=== PATIENT | female | born 1990 ===

== ENCOUNTER 2021-03-22 11:42 | Inpatient (IN) | payer MEDICAID ==
[2021-03-22] MEDS ORDERED: Sodium Chloride 0.9% 2.5 ML Syringe FLUSH PRN (12:05)
[2021-03-22] MEDS ORDERED: Methylergonovine 0.2 MG/1 ML Amp IM PRN (12:05)
[2021-03-22] MEDS ORDERED: Nalbuphine 10 MG/1 ML Vial IVPUSH PRN (12:05)
[2021-03-22] MEDS ORDERED: Sodium Chloride 0.9% 10 ML Syringe FLUSH PRN (12:05)
[2021-03-22] MEDS ORDERED: Butorphanol 1 MG/ML SDV IVPUSH PRN (12:05)
[2021-03-22] MEDS ORDERED: Water For Irrigation,Sterile 1,000 ML Container IRR PRN (12:05)
[2021-03-22] MEDS ORDERED: Carboprost Tromethamine 250 MCG/1 ML Amp IM PRN (12:05)
[2021-03-22] MEDS ORDERED: Misoprostol 200 MCG Tab PO PRN (12:05)
[2021-03-22] MEDS ORDERED: Tranexamic Acid 1,000 MG in Sodium Chloride 0.9% 100 ML IV PRN (12:05)
[2021-03-22] MEDS ORDERED: Sodium Chloride 0.9% 20 ML SDV IV PRN (12:05)
[2021-03-22] MEDS ORDERED: Lidocaine 1% 50 ML MDV INJECT PRN (12:05)
[2021-03-22] MEDS ORDERED: Ondansetron 4 MG/2 ML SDV IVPUSH PRN (12:05)
[2021-03-22] MEDS ORDERED: Lactated Ringers 1,000 ML IV SCH (12:15)
[2021-03-22] MEDS ORDERED: Oxytocin/0.9 % Sodium Chloride 30 UNIT/500 ML BAG IV SCH (12:15)
--- NOTE | 2021-03-22 13:25 | PCM.LDHP ---
L&D History of Present Illness - General Date of Service: 03/22/21 Admit Problem/Dx: Patient Status Order with Admit Dx/Problem 03/22/21 12:05 Patient Status [ADT] Routine Admission Diagnosis/Problem Admission Diagnosis/Problem - History of Present Illness Introduction:: 30yo at 38w3d EDD1/ by 7w1d US presenting in labor. Patient had contractions starting about 4AM, became stronger and more frequent after 11AM. Denies loss of fluid or vaginal bleeding. was uncomplicated. GBS negative. She had depression after her last baby, did not issues this . - Related Data Allergies/Adverse Reactions: Allergies Allergy/AdvReac Type Severity Reaction Status Date / Time No Known Allergies Allergy Verified 03/22/21 12:04 Home Medications: Home Meds Vits #93/Iron Fum/FA [ Formula Tablet] 1 each PO DAILY 03/22/21 [History] H&P Review of Systems - Review of Systems: Review Of Systems: See Below General: Reports: No Symptoms HEENT: Reports: No Symptoms Pulmonary: Reports: No Symptoms Cardiovascular: Reports: No Symptoms Gastrointestinal: Reports: No Symptoms Genitourinary: Reports: Other (Contractions, pelvic pressure) Musculoskeletal: Reports: No Symptoms Skin: Reports: No Symptoms Psychiatric: Reports: No Symptoms Neurological: Reports: No Symptoms Hematologic/Lymphatic: Reports: No Symptoms Immunologic: Reports: No Symptoms L&D Exam - Exam Exam: See Below - Vital Signs Weight: 141 lb - OB Specific Contraction Intensity: Moderate to Strong Movement: Active Heart Tones per Min: 140 Heart Rate (FHR) Variability: Moderate (6-25 bpm) Presentation: Vertex Estimated Weight: 7lbs - Exam General: Alert, Oriented, Cooperative HEENT: Conjunctiva Clear, EACs Clear, EOMI, Hearing Intact, Mucosa Moist & [place] Neck: Supple, Trachea Midline Lungs: Normal Respiratory Effort GI/Abdominal Exam: Soft, Non-Tender, No Distention Genitourinary: Cervical dilitation (90/0) Back Exam: Normal Inspection, Full Range of Motion Extremities: Normal Inspection, Normal Range of Motion, Non-Tender, No Pedal Edema Skin: Warm, Dry, Intact Neurological: Cranial Nerves Intact, Reflexes Equal Bilateral Psychiatric: Alert, Normal Affect, Normal Mood - Patient Data Lab Results Last 24 hrs: Laboratory Results - last 24 hr 03/22/21 Range/Units 12:23 WBC 13.80 H (4.0-11.0) K/uL RBC 4.55 (4.30-5.90) M/uL Hgb 13.1 (12.0-16.0) g/dL Hct 38.8 (36.0-46.0) % MCV 85.3 (80.0-98.0) fL MCH 28.8 (27.0-32.0) pg MCHC 33.8 (31.0-37.0) g/dL RDW Std Deviation 42.0 (28.0-62.0) fl RDW Coeff of Marquita 14 (11.0-15.0) % Plt Count 155 (150-400) K/uL MPV 12.90 H (7.40-12.00) fL Nucleated RBC % 0.0 /100WBC Nucleated RBCs # 0 K/uL Result Diagrams: 03/22/21 12:23 Problem List Initiated/Reviewed/Updated: Yes Orders Last 24hrs: Active Orders 24 hr Category Date Time Status Patient Status [ADT] Routine ADT 03/22/21 12:05 Active Heart Tones [RC] CONTINUOUS Care 03/22/21 12:05 Active Non Stress Test [RC] PER UNIT ROUTINE Care 03/22/21 12:05 Active May Shower [RC] ASDIRECTED Care 03/22/21 12:05 Active Notify Provider [RC] PRN Care 03/22/21 12:05 Active Peripheral IV Care [RC] PRN Care 03/22/21 12:05 Active Up ad Elizabeth [RC] ASDIRECTED Care 03/22/21 12:05 Active Vaginal Exam [RC] PRN Care 03/22/21 12:05 Active Vital Signs [RC] PER UNIT ROUTINE Care 03/22/21 12:05 Active CORONAVIRUS COVID-19 FLOYD [MOLEC] Urgent Lab 03/22/21 12:23 Received RPR (SYPHILIS SERO) W/ RFLX [REF] Routine Lab 03/22/21 12:23 Received TYPE AND SCREEN [BBK] Routine Lab 03/22/21 12:23 Received Butorphanol [Stadol] Med 03/22/21 12:05 Active 1 mg IVPUSH Q1H PRN Carboprost Tromethamine [Hemabate DS] Med 03/22/21 12:05 Active 250 mcg IM ASDIRECTED PRN Lactated Ringers [Ringers, Lactated] 1,000 ml Med 03/22/21 12:15 Active IV ASDIRECTED Lidocaine 1% [Xylocaine 1%] Med 03/22/21 12:05 Active 50 ml INJECT ONETIME PRN Methylergonovine [Methergine] Med 03/22/21 12:05 Active 0.2 mg IM ASDIRECTED PRN Nalbuphine [Nubain] Med 03/22/21 12:05 Active 10 mg IVPUSH Q1H PRN Ondansetron [Zofran] Med 03/22/21 12:05 Active 4 mg IVPUSH Q6H PRN Oxytocin/0.9 % Sodium Chloride [Oxytocin 30 Unit in NS Med 03/22/21 12:15 Active 0.9% 500 ML Premix] 30 unit in 500 ml IV TITRATE Sodium Chloride 0.9% [Normal Saline] Med 03/22/21 12:05 Active 10 ml IV ASDIRECTED PRN Sodium Chloride 0.9% [Saline Flush] Med 03/22/21 12:05 Active 10 ml FLUSH ASDIRECTED PRN Sodium Chloride 0.9% [Saline Flush] Med 03/22/21 12:05 Active 2.5 ml FLUSH ASDIRECTED PRN Tranexamic Acid [Cyklokapron] 1,000 mg Med 03/22/21 12:05 Active Sodium Chloride 0.9% [Normal Saline] 100 ml IV ONETIME Water For Irrigation,Sterile [Sterile Water for Med 03/22/21 12:05 Active Irrigation] 1,000 ml IRR ASDIRECTED PRN miSOPROStoL [Cytotec] Med 03/22/21 12:05 Active 200 mcg PO ONETIME PRN Scalp Electrode [WOMSER] Per Unit Routine Oth 03/22/21 12:05 Ordered Peripheral IV Insertion Adult [OM.PC] Routine Oth 03/22/21 12:05 Ordered Resuscitation Status Routine Resus Stat 03/22/21 12:05 Ordered Medication Orders Butorphanol Tartrate (Butorphanol 1 Mg/Ml Sdv) 1 mg IVPUSH Q1H PRN PRN Reason: Pain (severe 7-10) Carboprost Tromethamine (Carboprost Tromethamine 250 Mcg/1 Ml Amp) 250 mcg IM ASDIRECTED PRN PRN Reason: Post Hemorrhage Oxytocin/Sodium Chloride (Oxytocin 30 Unit In Ns 0.9% 500 Ml Premix) 30 unit in 500 mls @ 999 mls/hr IV TITRATE [facility] Tranexamic Acid 1,000 mg/ (Sodium Chloride) 110 mls @ 660 mls/hr IV ONETIME PRN PRN Reason: Bleeding Lactated Ringer's (Ringers, Lactated) 1,000 mls @ 150 mls/hr IV ASDIRECTED [facility] Lidocaine HCl (Lidocaine 1% 50 Ml Mdv) 50 ml INJECT ONETIME PRN PRN Reason: Laceration repair Methylergonovine Maleate (Methylergonovine 0.2 Mg/1 Ml Amp) 0.2 mg IM ASDIRECTED PRN PRN Reason: Post Hemorrhage Misoprostol (Misoprostol 200 Mcg Tab) 200 mcg PO ONETIME PRN PRN Reason: Post Hemorrhage Nalbuphine HCl (Nalbuphine 10 Mg/1 Ml Vial) 10 mg IVPUSH Q1H PRN PRN Reason: Pain (severe 7-10) Ondansetron HCl (Ondansetron 4 Mg/2 Ml Sdv) 4 mg IVPUSH Q6H PRN PRN Reason: Nausea/Vomiting Sodium Chloride (Sodium Chloride 0.9% 10 Ml Syringe) 10 ml FLUSH ASDIRECTED PRN PRN Reason: Keep Vein Open Sodium Chloride (Sodium Chloride 0.9% 2.5 Ml Syringe) 2.5 ml FLUSH ASDIRECTED PRN PRN Reason: Keep Vein Open Sodium Chloride (Sodium Chloride 0.9% 20 Ml Sdv) 10 ml IV ASDIRECTED PRN PRN Reason: IV Use Sterile Water (Water For Irrigation,Sterile 1,000 Ml Container) 1,000 ml IRR ASDIRECTED PRN PRN Reason: delivery Assessment/Plan Comment:: 30yo at 38w3d presenting with active labor. - Admit to L&D, labs CBC, RPR, T&S, COVID19 test - Cat 1 tracing - GBS negative - O+, Rubella immune - Undecided on pain control, epidural PRN Anticipate vaginal delivery.
[2021-03-22] MEDS ORDERED: Ibuprofen 800 MG Tab PO PRN (15:23)
[2021-03-22] MEDS ORDERED: Lanolin 100% Cream 7 GM Tube TOP PRN (15:23)
[2021-03-22] MEDS ORDERED: Acetaminophen 500 MG Tab PO PRN (15:23)
[2021-03-22] MEDS ORDERED: Ibuprofen 400 MG Tab PO PRN (15:23)
[2021-03-22] MEDS ORDERED: Witch Hazel Medicated Pads 40/Jar TOP PRN (15:23)
[2021-03-22] MEDS ORDERED: Docusate Sodium 100 MG Cap PO PRN (15:23)
[2021-03-22] MEDS ORDERED: oxyCODONE 5 MG Tab PO PRN (15:23)
[2021-03-22] MEDS ORDERED: Bisacodyl 10 MG Supp RECTAL PRN (15:23)
[2021-03-22] MEDS ORDERED: Benzocaine/Menthol 20%-0.5% Spray 78 GM Cannister TOP PRN (15:23)
--- NOTE | 2021-03-22 17:11 | OR ---
SURGEON: Markus Flores MD DATE OF PROCEDURE: 03/22/2021 INDICATIONS FOR PROCEDURE: A 30-year-old G2, P1-0-0-1 at 38 weeks and 3 days, presenting in labor. The patient reports she had contractions starting around 4 a.m. this morning that has become increasingly stronger and more painful. No loss of fluid or vaginal bleeding. After presenting to Labor and Delivery, she was found to be 7 cm dilated with bulging membranes. She is GBS negative. The was otherwise uncomplicated. Category 1 tracing. The patient declined IV pain medication and epidural. AROM was performed with clear fluid. She then quickly progressed to fully dilated with urge to push. PREOPERATIVE DIAGNOSES: 1. Bolden intrauterine at 38 weeks and 3 days. 2. Active stage of labor. POSTOPERATIVE DIAGNOSES: 1. Bolden intrauterine at 38 weeks and 3 days. 2. Active stage of labor. PROCEDURE PERFORMED: 1. Normal spontaneous vaginal delivery. 2. Repair of second-degree laceration and right labial laceration. ANESTHESIA: Local anesthesia. FINDINGS: Viable male infant. scores of 9/9. weight of 3290g. Nuchal cord x1. ESTIMATED BLOOD LOSS: 250 mL. DESCRIPTION OF PROCEDURE: The patient pushed with contractions for approximately 20 minutes with good descent. head delivered in occiput anterior position over intact perineum, restituted ROT. Anterior shoulder was delivered easily. Tight nuchal cord was noted. Posterior shoulder and body were delivered without difficulty. Nuchal cord was reduced. The patient was placed on maternal chest and evaluated by awaiting nursery staff. The baby was pink, crying, and moving all extremities immediately after delivery. The umbilical cord was clamped and cut after about 3 minutes and no longer pulsating. Umbilical cord gases were obtained. The placenta was removed with gentle traction on the umbilical cord. It was examined to be intact with 3-vessel cord. Vagina and perineum were examined, and she had a second-degree perineal laceration and tear of the right labia minora near the clitoral elizalde. 15 mL of 1% lidocaine with epinephrine was injected for local anesthesia. The perineal laceration was repaired with 3-0 Vicryl in usual fashion. The right labial laceration was circumferentially reapproximated with 3-0 Vicryl. Hemostasis was confirmed after the procedure. The fundus was firm and below the umbilicus, and the bleeding was light. The patient tolerated the procedure well, was given care instructions. KALEIGH HAYES /[id number] MTDD
[2021-03-23] MEDS: Acetaminophen 500 MG Tab PO PRN ×2 (00:34→09:36)
--- NOTE | 2021-03-23 11:52 | PCM.PNPP ---
- General Info Date of Service: 03/23/21 Functional Status: Reports: Pain Controlled, Tolerating Diet, Ambulating, Urinating - Review of Systems General: Reports: No Symptoms HEENT: Reports: No Symptoms Pulmonary: Reports: No Symptoms Cardiovascular: Reports: No Symptoms Gastrointestinal: Reports: No Symptoms Genitourinary: Reports: No Symptoms Musculoskeletal: Reports: No Symptoms Skin: Reports: No Symptoms Neurological: Reports: No Symptoms Psychiatric: Reports: No Symptoms - Patient Data Vital Signs - Most Recent: Last Vital Signs Temp 36.2 C 03/23/21 08:00 Pulse 71 03/23/21 08:00 Resp 16 03/23/21 08:00 BP 117/75 03/23/21 08:00 Pulse Ox 97 03/23/21 08:00 Weight - Most Recent: 141 lb Lab Results - Last 24 Hours: Laboratory Results - last 24 hr 03/22/21 03/22/21 03/22/21 Range/Units 12:23 12:23 12:23 WBC 13.80 H (4.0-11.0) K/uL RBC 4.55 (4.30-5.90) M/uL Hgb 13.1 (12.0-16.0) g/dL Hct 38.8 (36.0-46.0) % MCV 85.3 (80.0-98.0) fL MCH 28.8 (27.0-32.0) pg MCHC 33.8 (31.0-37.0) g/dL RDW Std Deviation 42.0 (28.0-62.0) fl RDW Coeff of Marquita 14 (11.0-15.0) % Plt Count 155 (150-400) K/uL MPV 12.90 H (7.40-12.00) fL Nucleated RBC % 0.0 /100WBC Nucleated RBCs # 0 K/uL Cord ABG pH (7.18-7.38) Cord ABG Base Excess (-10--2) Cord VBG pH (7.25-7.45) Cord VBG Base Excess (-10--2) SARS-CoV-2 RNA ([place]) NEGATIVE (NEGATIVE) Blood Type O POSITIVE Antibody Screen NEGATIVE 03/22/21 03/23/21 Range/Units 14:28 06:00 WBC (4.0-11.0) K/uL RBC (4.30-5.90) M/uL Hgb 12.1 (12.0-16.0) g/dL Hct 36.3 (36.0-46.0) % MCV (80.0-98.0) fL MCH (27.0-32.0) pg MCHC (31.0-37.0) g/dL RDW Std Deviation (28.0-62.0) fl RDW Coeff of Marquita (11.0-15.0) % Plt Count (150-400) K/uL MPV (7.40-12.00) fL Nucleated RBC % /100WBC Nucleated RBCs # K/uL Cord ABG pH 7.266 (7.18-7.38) Cord ABG Base Excess -7 (-10--2) Cord VBG pH 7.269 (7.25-7.45) Cord VBG Base Excess -6 (-10--2) SARS-CoV-2 RNA ([place]) (NEGATIVE) Blood Type Antibody Screen Med Orders - Current: Current Medications Acetaminophen (Acetaminophen 500 Mg Tab) 500 mg PO Q4H PRN PRN Reason: Pain (mild 1-3) Acetaminophen (Acetaminophen 500 Mg Tab) 1,000 mg PO Q4H PRN PRN Reason: Pain (mild 1-3) Last Admin: 03/23/21 09:36 Dose: 1,000 mg Documented by: Benzocaine/Menthol (Benzocaine/Menthol 20%-0.5% [place] 78 Gm Cannister) 78 gm TOP ASDIRECTED PRN PRN Reason: Perineal Comfort Measure Last Admin: 03/22/21 16:58 Dose: 1 can Documented by: Bisacodyl (Bisacodyl 10 Mg Supp) 10 mg RECTAL ONETIME PRN PRN Reason: Constipation Docusate Sodium (Docusate Sodium 100 Mg Cap) 100 mg PO Q12H PRN PRN Reason: Constipation Last Admin: 03/23/21 09:36 Dose: 100 mg Documented by: Emollient Ointment (Lanolin 100% Cream 7 Gm Tube) 0 gm TOP ASDIRECTED PRN PRN Reason: Sore Nipples Ibuprofen (Ibuprofen 400 Mg Tab) 400 mg PO Q4H PRN PRN Reason: Pain (mild 1-3) Ibuprofen (Ibuprofen 800 Mg Tab) 800 mg PO Q6H PRN PRN Reason: Cramping Last Admin: 03/23/21 00:34 Dose: 800 mg Documented by: Oxycodone HCl (Oxycodone 5 Mg Tab) 5 mg PO Q2H PRN PRN Reason: Pain (severe 7-10) Sodium Chloride (Sodium Chloride 0.9% 10 Ml Syringe) 10 ml FLUSH ASDIRECTED PRN PRN Reason: Keep Vein Open Sodium Chloride (Sodium Chloride 0.9% 2.5 Ml Syringe) 2.5 ml FLUSH ASDIRECTED PRN PRN Reason: Keep Vein Open Sodium Chloride (Sodium Chloride 0.9% 20 Ml Sdv) 10 ml IV ASDIRECTED PRN PRN Reason: IV Use Witch Alisha (Witch Alisha Medicated Pads 40/Jar) 1 pad TOP ASDIRECTED PRN PRN Reason: comfort care Last Admin: 03/22/21 16:59 Dose: 1 can Documented by: Discontinued Medications Butorphanol Tartrate (Butorphanol 1 Mg/Ml Sdv) 1 mg IVPUSH Q1H PRN PRN Reason: Pain (severe 7-10) Carboprost Tromethamine (Carboprost Tromethamine 250 Mcg/1 Ml Amp) 250 mcg IM ASDIRECTED PRN PRN Reason: Post Hemorrhage Oxytocin/Sodium Chloride (Oxytocin 30 Unit In Ns 0.9% 500 Ml Premix) 30 unit in 500 mls @ 999 mls/hr IV TITRATE [facility] Last Admin: 03/22/21 14:30 Dose: 500 mls/hr Documented by: Tranexamic Acid 1,000 mg/ (Sodium Chloride) 110 mls @ 660 mls/hr IV ONETIME PRN PRN Reason: Bleeding Lactated Ringer's (Ringers, Lactated) 1,000 mls @ 150 mls/hr IV ASDIRECTED [facility] Influenza Virus Vaccine (Pharmacy To Dose - Influenza Vaccine) 1 each IM ONETIME ONE Stop: 03/23/21 14:01 Influenza Virus Vaccine (Flu Vacc [id number](6mos Up)/Pf 60 Mcg/0.5 Ml Syringe) 60 mcg IM .ONCE ONE Stop: 03/22/21 16:01 Lidocaine HCl (Lidocaine 1% 50 Ml Mdv) 50 ml INJECT ONETIME PRN PRN Reason: Laceration repair Last Admin: 03/22/21 14:35 Dose: 50 ml Documented by: Methylergonovine Maleate (Methylergonovine 0.2 Mg/1 Ml Amp) 0.2 mg IM ASDIRECTED PRN PRN Reason: Post Hemorrhage Misoprostol (Misoprostol 200 Mcg Tab) 200 mcg PO ONETIME PRN PRN Reason: Post Hemorrhage Nalbuphine HCl (Nalbuphine 10 Mg/1 Ml Vial) 10 mg IVPUSH Q1H PRN PRN Reason: Pain (severe 7-10) Ondansetron HCl (Ondansetron 4 Mg/2 Ml Sdv) 4 mg IVPUSH Q6H PRN PRN Reason: Nausea/Vomiting Sterile Water (Water For Irrigation,Sterile 1,000 Ml Container) 1,000 ml IRR ASDIRECTED PRN PRN Reason: delivery - Interaction Infant Feeding: Attempted ; Nursed Fair/Poor Support Person: - Recovery Exam Fundal Tone: Firm Fundal Level: 2 Fingerbreadths Below Umbilicus Fundal Placement: Midline Lochia Amount: Scant Lochia Color: Rubra/Red Perineum Description: Intact, Minimal Bruising/Swelling, Other (see below) Other Perinuem Description: 2nd degree laceration Episiotomy/Laceration: Approximated Bladder Status: Voiding - Exam General: Alert, Oriented, Cooperative, No Acute Distress HEENT: Pupils Equal, Pupils Reactive, EOMI Neck: Supple, Trachea Midline, No JVD Lungs: Normal Respiratory Effort GI/Abdominal Exam: Soft, Non-Tender, No Distention Extremities: Normal Inspection, Normal Range of Motion, Non-Tender, No Pedal Edema Skin: Warm, Dry, Intact Wound/Incisions: Healing Well Neurological: No New Focal Deficit Psy/Mental Status: Alert, Normal Affect, Normal Mood - Problem List Review Problem List Initiated/Reviewed/Updated: Yes - My Orders Last 24 Hours: My Active Orders 03/22/21 12:05 Peripheral IV Care [RC] PRN Sodium Chloride 0.9% [Normal Saline] 10 ml IV ASDIRECTED PRN Sodium Chloride 0.9% [Saline Flush] 10 ml FLUSH ASDIRECTED PRN Sodium Chloride 0.9% [Saline Flush] 2.5 ml FLUSH ASDIRECTED PRN Peripheral IV Insertion Adult [OM.PC] Routine Resuscitation Status Routine 03/22/21 12:23 RPR (SYPHILIS SERO) W/ RFLX [REF] Routine 03/22/21 15:23 Acetaminophen [Tylenol Extra Strength] 1,000 mg PO Q4H PRN Acetaminophen [Tylenol Extra Strength] 500 mg PO Q4H PRN Benzocaine/Menthol [Dermoplast Pain Relief 20%-0.5% [place]] 78 gm TOP ASDIRECTED PRN Docusate Sodium [Colace] 100 mg PO Q12H PRN Ibuprofen [Motrin] 400 mg PO Q4H PRN Ibuprofen [Motrin] 800 mg PO Q6H PRN Lanolin [Lansinoh HPA] See Dose Instructions TOP ASDIRECTED PRN bisacodyL [Dulcolax] 10 mg RECTAL ONETIME PRN oxyCODONE 5 mg PO Q2H PRN witch Alisha [Tucks] 1 pad TOP ASDIRECTED PRN 03/22/21 15:24 Patient Status [ADT] Routine May Shower [RC] ASDIRECTED Up ad Elizabeth [RC] ASDIRECTED Vital Signs [RC] PER UNIT ROUTINE Assess Lochia [WOMSER] Per Unit Routine Assess Uterine Involution [WOMSER] Per Unit Routine Ice Therapy [OM.PC] Per Unit Routine Perineal Care [OM.PC] Per Unit Routine Peripheral IV Discontinue [OM.PC] Routine 03/22/21 15:25 Cooling Warming Measures [RC] ASDIRECTED 03/22/21 Dinner Regular Diet [DIET] 03/23/21 11:46 Ready for Discharge [RC] PER UNIT ROUTINE - Plan Plan:: 30yo PPD1 s/p . - Vital stable - ambulating well, tolerating PO - O+, Rubella immune - Bleeding light, Hgb stable Plan for discharge home today, reviewed care instructions.
== END 2021-03-23 16:30 | disposition home or self-care (01) | DRG 807 ==
LOC: MW.OBCHECK 11:42 → MW.OB 11:44 → MW.OBCHECK 12:34 → OBSVTOIN 15:24 → MW.OB 17:09
PROVIDERS: ADMIT Obstetrics & Gynecology; ATTEND Obstetrics & Gynecology
PROC: 10E0XZZ Delivery of Products of Conception, External Approach (ICD-10-PCS; principal; 2021-03-22)
PROC: 0KQM0ZZ Repair Perineum Muscle, Open Approach (ICD-10-PCS; 2021-03-22)
PROC: 10907ZC Drainage of Amniotic Fluid, Therapeutic from Products of Conception, Via Natural or Artificial Opening (ICD-10-PCS; 2021-03-22)
PROC: 3E02340 Introduction of Influenza Vaccine into Muscle, Percutaneous Approach (ICD-10-PCS; 2021-03-23)
DX: O69.1XX0 Labor and delivery complicated by cord around neck, with compression, not applicable or unspecified (principal); Z37.0 Single live birth; O70.1 Second degree perineal laceration during delivery; Z3A.38 38 weeks gestation of pregnancy; Z20.822 Contact with and (suspected) exposure to COVID-19; Z23 Encounter for immunization
CPT/HCPCS: 36415; 51701; 51703; 59025; 59409; 82803; 85014; 85018; 85027; 86592; 86850; 86900; 86901; 90686; A9270-GY; G0008; J2001; J2590; U0002